=== PATIENT | female | born 1980 | race Caucasian/White ===

== ENCOUNTER → 2017-12-09 07:50 | Outpatient (CLI) | payer OTHER, SELFPAY ==
--- NOTE | 2017-12-09 07:57 | XR_ITS ---
XR foot LT min 3V HISTORY: ITS.REASON: PLANTAR FACIITITS, LT FOOT PAIN ORDERING PHYSICIAN: Madelyn Rodríguez PATIENT AGE: 37 years COMPARISON: None FINDINGS: No fracture or dislocation. No lytic or blastic change. There is normal mineralization.. The joint spaces are well-preserved. No significant degenerative/arthritic changes. No erosive changes evident. No large calcaneal spurs IMPRESSION: Negative, no acute finding
== END ==
PROVIDERS: PCP Internal Medicine Adolescent Medicine; Visit Provider Nurse Practitioner Family
DX: M72.2 Plantar fascial fibromatosis (principal); M79.672 Pain in left foot
CPT/HCPCS: 73630

== ENCOUNTER → 2017-12-16 08:13 | Outpatient (POV) | payer OTHER, SELFPAY | PROVIDERS: Visit Provider Physician Assistant | DX: Z00.00 Encounter for general adult medical examination without abnormal findings (principal) ==

== ENCOUNTER → 2019-01-22 07:53 | Outpatient (CLI) | payer OTHER, SELFPAY ==
--- NOTE | 2019-01-22 07:57 | XR_ITS ---
PROCEDURE: XR FOOT LT MIN 3V CLINICAL INDICATION: ACUTE PAIN DUE TO TRAUMA COMPARISON: [id number] XR foot LT min 3V from 12/09/2017 FINDINGS: No fracture or dislocation. No lytic or blastic change. There is normal mineralization. The joint spaces are well-preserved. No significant degenerative/arthritic changes. No erosive changes evident. Other findings:None. IMPRESSION: No acute findings. Dictated by: Pavan Haque MD 01/22/2019 13:18 Electronically signed by Pavan Haque MD in [place] 01/22/2019 13:18
== END ==
PROVIDERS: PCP Nurse Practitioner Family; Visit Provider Nurse Practitioner Family
DX: G89.11 Acute pain due to trauma (principal); M79.672 Pain in left foot
CPT/HCPCS: 73630

== ENCOUNTER → 2019-04-02 10:05 | Outpatient (CLI) | payer OTHER, SELFPAY ==
--- NOTE | 2019-04-02 10:07 | MR_ITS ---
PROCEDURE: MR HEAD/BRAIN WO/W CON CLINICAL INDICATION: MIGRAINE WITH AURA AND WOUT STATUS MIGRAINOSUS, NOT INTRACTA Severe left-sided temporal headache with blurred vision COMPARISON: BRW/O MRI-BRAIN W/O from 03/01/2014 TECHNIQUE: Routine multiplanar multi echo sequences are performed without and with gadolinium enhancement. FINDINGS: No midline shift, mass effect, intracranial hemorrhage, or hydrocephalus. No evidence of acute infarction. No enhancing lesions are evident. The cerebellopontine angles, cerebellum, and brainstem are unremarkable. There is normal sosa-white matter differentiation with no abnormal white matter signal intensity evident. The pituitary, optic chiasm, corpus callosum, and craniocervical junction have an unremarkable appearance. No mastoid effusion or sinus air-fluid level. IMPRESSION: Negative MRI of the brain without and with contrast Dictated by: Pavan Haque MD 04/03/2019 07:52 Electronically signed by Pavan Haque MD in [facility] 04/03/2019 07:52
== END ==
PROVIDERS: PCP Nurse Practitioner Family; Visit Provider Nurse Practitioner Family
DX: G43.109 Migraine with aura, not intractable, without status migrainosus (principal)
CPT/HCPCS: 70553; A9576

== ENCOUNTER → 2019-05-06 12:49 | Outpatient (CLI) | payer OTHER, SELFPAY ==
--- NOTE | 2019-05-06 12:55 | XR_ITS ---
PROCEDURE: XR WRIST RT MIN 3V CLINICAL INDICATION: RT WRIST PAIN Wrist pain, recent injury COMPARISON: No exams were available for comparison FINDINGS: Unremarkable appearing radiocarpal joint. There is a small calcific density along the dorsal aspect of the mid wrist on the lateral view and could be due to a triquetrum avulsion. Otherwise negative IMPRESSION: Possible triquetrum avulsion fracture which may be confirmed with CT otherwise negative Dictated by: Pavan Haque MD 05/06/2019 13:24 Electronically signed by Pavan Haque MD in [facility] 05/06/2019 13:24
== END ==
PROVIDERS: PCP Internal Medicine Adolescent Medicine; Visit Provider Internal Medicine Adolescent Medicine
DX: M25.531 Pain in right wrist (principal)
CPT/HCPCS: 73110

== ENCOUNTER → 2019-06-05 08:53 | Outpatient (CLI) | payer OTHER, SELFPAY ==
--- NOTE | 2019-06-05 08:58 | XR_ITS ---
PROCEDURE: XR WRIST RT MIN 3V CLINICAL INDICATION: wrist pain Follow-up wrist fracture COMPARISON: XR WRIST RT MIN 3V from 05/06/2019 FINDINGS: Normal alignment. Small bony fragment noted at the dorsal and mid aspect of wrist consistent with triquetrum avulsion is somewhat less apparent. No other significant abnormalities evident. IMPRESSION: Triquetrum avulsion fragment is somewhat less apparent otherwise negative Dictated by: Pavan Haque MD 06/05/2019 10:47 Electronically signed by Pavan Haque MD in [place] 06/05/2019 10:47
== END ==
PROVIDERS: PCP Internal Medicine Adolescent Medicine; Visit Provider Orthopaedic Surgery
DX: S62.101A Fracture of unspecified carpal bone, right wrist, initial encounter for closed fracture (principal)
CPT/HCPCS: 73110

== ENCOUNTER → 2019-11-27 12:45 | Outpatient (CLI) | payer OTHER, SELFPAY ==
--- NOTE | 2019-11-27 12:58 | XR_ITS ---
PROCEDURE: XR CHEST 2V CLINICAL HISTORY: CHEST WALL PAIN,CHEST WALL MASS Mass noted posterior to the left scapula 2 days ago. COMPARISON: CXR CHEST(2 VIEWS-NOT PORTABLE) from 05/07/2013 FINDINGS: No acute bony abnormalities. The cardiomediastinal silhouette and pulmonary vascularity are within normal limits. The lungs are clear without infiltrates, suspicious nodules, or pleural effusions. IMPRESSION: 1. No acute or active cardiopulmonary abnormality is seen. 2. If there is clinical concern for a mass, I recommend CT exam. Dictated by: Quiana Lawson 11/27/2019 13:40 Electronically signed by Quiana Lawson in [place] 11/27/2019 13:40
--- NOTE | 2019-11-27 12:58 | CT_ITS ---
PROCEDURE: CT CHEST W CON CLINCAL INDICATION: CHEST WALL MASS,CHEST PAIN COMPARISON: No exams were available for comparison TECHNIQUE: IV Contrast: 75ml Optiray 350 Axial images obtained with sagittal and coronal reformats. All CT scans at the facility use one or more dose reduction, viz: automated exposure control, ma/kV adjustment per patient size (including targeted exams where dose is matched to indication, i.e. head), or iterative reconstruction technique. FINDINGS: HEART AND MEDIASTINAL STRUCTURES: The heart size is normal and there is no pericardial effusion. The aorta and great vessels are normal in caliber. The central pulmonary arteries are patent. There is no demonstrated significant mediastinal or hilar lymphadenopathy. Reactive lymph nodes are seen in the axilla bilaterally. LUNGS AND PLEURAL SPACES: The lungs are clear with no infiltrates, effusions or masses. There is biapical mild pleural parenchymal scarring. BONY STRUCTURES: No acute bony abnormalities apparent. UPPER ABDOMEN: Unremarkable. ADDITIONAL FINDINGS: No other significant abnormalities. No discrete abnormality/mass is identified at the area of clinical concern/left scapular region. IMPRESSION: Essentially an unremarkable CT exam of the chest. No mass or other abnormalities identified at the area of reported clinical concern. Dictated by: Quiana Lawson 11/27/2019 13:58 Electronically signed by Quiana Lawson in [place] 11/27/2019 13:58
== END ==
PROVIDERS: PCP Internal Medicine Adolescent Medicine; Visit Provider Internal Medicine Adolescent Medicine
DX: R07.9 Chest pain, unspecified (principal); R22.2 Localized swelling, mass and lump, trunk
CPT/HCPCS: 71046; 71260; Q9967

== ENCOUNTER → 2020-02-04 13:30 | Outpatient (CLI) | payer OTHER, SELFPAY | PROVIDERS: PCP Internal Medicine Adolescent Medicine; Visit Provider Internal Medicine Adolescent Medicine | DX: Z03.818 Encounter for observation for suspected exposure to other biological agents ruled out (principal); R05 Cough | CPT/HCPCS: U0003 ==

== ENCOUNTER → 2020-02-09 10:21 | Outpatient (CLI) | payer OTHER, SELFPAY ==
[2020-02-10 07:34] LABS: Covid-19 Nasal PCR Sendout Lex NOT DETECTED
== END ==
PROVIDERS: Visit Provider Internal Medicine Adolescent Medicine
DX: Z03.818 Encounter for observation for suspected exposure to other biological agents ruled out (principal)
CPT/HCPCS: U0004

== ENCOUNTER → 2020-07-19 13:12 | Outpatient (POV) | payer OTHER, SELFPAY | PROVIDERS: Visit Provider Dermatology | DX: Z00.00 Encounter for general adult medical examination without abnormal findings (principal) ==

== ENCOUNTER → 2021-10-10 08:33 | Outpatient (POV) | payer OTHER, SELFPAY | PROVIDERS: Visit Provider Dermatology | DX: Z00.00 Encounter for general adult medical examination without abnormal findings (principal) ==

== ENCOUNTER 2022-02-12 06:04 | Day surgery (SDC) | payer OTHER, SELFPAY ==
[2022-02-12] VITALS (9 sets, daily range): BP systolic 116–123; BP diastolic 71–85; PULSE 68–80; RESP 12–18; TEMP 36.1–36.2; O2SAT 96–100; BMI 31.0
[2022-02-12 06:26] LABS: Urine Pregnancy, HCG Qual. Negative (Negative)
[2022-02-12 07:04] LABS: Basophils # 0.1 K/mm3 (0-0.2); Basophils % 1.4 % (0.1-2.0); Eosinophils # 0.1 K/mm3 (0.0-0.4); Eosinophils % 2.2 % (0.1-12.0); Hematocrit 41.5 % (37.0-47.0); Hemoglobin 13.3 g/dL (12.2-16.2); Lymphocytes # 1.7 K/mm3 (0.7-4.5); Lymphocytes % 25.9 % (10-50); Mean Corpuscular HGB Conc 32.1 g/dL (31.8-35.4); Mean Corpuscular Hemoglobin 30.7 pg (27.0-31.2); Mean Corpuscular Volume 95.7 fl (81-99); Monocytes # 0.4 K/mm3 (0.1-1.0); Monocytes % 5.9 % (1.7-9.3); Neutrophils # 4.3 K/mm3 (1.8-7.8); Neutrophils % 64.6 % (37.0-80.0); Platelet Count 345 K/mm3 (142-424); Red Blood Count 4.34 M/mm3 (4.20-5.40); Red Cell Distribution Width 13.3 % (11.5-17.5); White Blood Count 6.7 K/mm3 (4.8-10.8)
--- NOTE | 2022-02-12 07:14 | SUR.PREOP ---
0702 - H&P LAID OUT FOR MD TO FILL OUT AND SIGN CONSENT DUE TO OVER 30 DAYS. Sherry NEWTON RN NOTIFIED MD HAS NOT FILLED OUT UPDATED H&P OR SIGNED CONSENT. Sherry NEWTON RN STATED WILL REMIND .
[2022-02-12 07:16] LABS: Chloride 105 mmol/L (98-107); Potassium 3.4 mmoL/L (3.5-5.1); Sodium 141 mmol/L (136-145)
[2022-02-12 07:19] LABS: Anion Gap 11.4 mEq/L (5-15); Blood Urea Nitrogen 9 mg/dl (7-17); Carbon Dioxide 28 mmol/L (22.0-30.0); Creatinine Clearance Estimated 162 mL/min (50-200); Estimated Glomerular Filt Rate 93 ml/min (>60); GFR (African American) 113 ML/MIN (>60); Glucose 93 mg/dl (74-100)
--- NOTE | 2022-02-12 07:32 | P.PN_ITS ---
PFSH PFS Medical History Acne History of anxiety History of depression History of gastroesophageal reflux (GERD) Lipoma of shoulder Migraine Surgical History History of breast lump/mass excision History of dilatation and curettage History of wisdom tooth extraction, class IV edentulism Hx of section Hx of tubal ligation Family History Other Family history of hypertension Social History (Updated 02/12/22 @ 06:26 by Fatimah Rodríguez RN) Smoking Status: Former smoker smoking status stop date: QUIT 10 YEARS AGO alcohol intake: never substance use type: denies use current occupational status: employed Travel in the last 8 weeks: Inside the [place] household members: family housing: house marital status: education level: high school special jesse needs: No agree to transfusion: No do you feel safe at home: Yes victim of physical abuse: No victim of emotional abuse: No victim of sexual abuse: No would you like helpful sources: No [facility] Anesthesia Checklist Patient Identification Patient Identification: Verbal (Name & ) Structural Data Admitted From: Home Planned Operative Procedure/s: excision neoplasm l shoulder Verified Documents: Surgical Consent NPO Status Verified Time NPO: 00:00 Additional verifications Anesthesia Reactions: No Hx Blood Transfusions: No Blood Transfusion Reaction: No Airway Assessment C-Spine Mobility Assessed: Yes TMJ Mobility Assessed: Yes Dentition: Good Dentition Neurological Assessment Level of Consciousness: Awake, Alert and Appropriate Anesthesia Plan Anesthesia Risk discussed: Yes Anesthesia Plan: Verified ASA Class: II Anesthesia Type: General
--- NOTE | 2022-02-12 07:59 | P.OP_ITS ---
Date of procedure: 02/12/22 Pre-op Diagnosis:: Lipoma left upper back/scapular Post-op Diagnosis:: Same Procedure performed:: Excision of lipoma left upper back/scapular area (excisional length 5 cm) with complex closure Surgeon:: Marco Sosa MD ESTIMATOR AND DRAFTER SUPERVISOR:: Lukas Ramos Anesthesia: LMA Estimated blood loss (mL): 5 Operative findings:: Consistent with lipoma. Relatively deep Operative note:: Patient was taken to the operating room. She was given preoperative intravenous antibiotics. In the operating room she was placed in a supine position. General anesthesia was induced via endotracheal tube. She was positioned in right lateral position. The area was prepped and draped in the standard surgical fashion. Lesion was marked with skin marker for planned excision. Please note that the lesion had been marked in the preoperative area. Transverse skin incision was made. Dissection was carried down through subcutaneous tissues and superficial fascia. Fascia was incised and ultimately lobulated lipomatous lesion was encountered. With some blunt dissection and use of electrocautery it was able to be dissected free from surrounding tissues. It was relatively deep. It was excised and sent off as specimen. Wound was probed and appeared as though the lesion was excised in its entirety but it was somewhat lobulated and friable. Local anesthetic was infiltrated. Wound was irrigated. There was good hemostasis. Fascia was closed with interrupted 2-0 Vicryl. Deep dermal tissues were closed with interrupted 3-0 Vicryl. Skin was closed with 4-0 Monocryl in a running subcuticular fashion. Dermabond and dressing was applied. Condition: stable Disposition: PACU Complications:: None immediate
--- NOTE | 2022-02-12 08:05 | EXP.ANES.I ---
[facility] Anesthesia Record Part I Anesthesia Record I Intake, IV Amount: 1,200 Estimated blood loss (mL): 0 Urine output (mL): 0 Blood Pressure: 122/82 SaO2: 96 Pulse Rate: 80 Respiratory Rate: 12 Temperature: 97 F Patient is:: Awake and Stable Stable to PACU at:: 08:00
--- NOTE | 2022-02-12 08:32 | SUR.PHASEI ---
829- detailed report given to stefanie patricio in post op 0831- pt left in stable condition with stefanie patricio in post op at this time. All vitals stable, all dressings CDI.
[2022-02-13 10:41] VITALS: BP 116/79; PULSE 70; TEMP 36.2
--- NOTE | 2022-02-13 10:41 | P.PNANES_ITS ---
[facility] Anesthesia Record Part II Anesthesia Record Part II Discharge Time: 08:30 Destination: Surgical Day Care (OP Surgery) PACU nurse assessment reviewed?: Yes Patient Condition:: Good Anesthesia Complications:: None Swallowing reflex intact?: Yes Cyanosis?: No Blood Pressure: 116/79 Pulse Rate: 70 Temperature: 97.2 F Mental Status: Alert & Oriented Pain level:: 0 Nausea and/or vomitting:: None Intake, IV Amount: 0
== END 2022-02-12 09:05 | disposition home or self-care (01) ==
PROVIDERS: PCP Internal Medicine Adolescent Medicine; Visit Provider Surgery
PROC: (CPT 11406; principal; 2022-02-12 07:30)
DX: D17.1 Benign lipomatous neoplasm of skin and subcutaneous tissue of trunk (principal); Z79.899 Other long term (current) drug therapy
CPT/HCPCS: 11406; 13101; 80048; 81025; 85025; 96374; J2405

== ENCOUNTER → 2023-01-28 11:51 | Outpatient (CLI) | payer OTHER, SELFPAY ==
--- NOTE | 2023-01-28 11:55 | CA_ITS ---
FINAL REPORT CLINICAL HISTORY: recent travel, SOB, right knee pain. FINDINGS: Color Doppler, duplex Doppler and compression sonography of the bilateral lower extremities was performed. There is no evidence of deep venous thrombosis from the level of the groin to the calf. The deep veins are patent and compressible. IMPRESSION: No evidence of deep venous thrombosis bilateral lower extremities. Reviewed, Interpreted and Dictated by Marco Henson III, MD Transcribed by Eloina Mueller Authenticated and [facility]
== END ==
PROVIDERS: PCP Internal Medicine Adolescent Medicine; Visit Provider Nurse Practitioner Family
DX: R60.0 Localized edema (principal)
CPT/HCPCS: 93970

== ENCOUNTER → 2023-02-08 17:58 | Outpatient (CLI) | payer OTHER, SELFPAY ==
--- NOTE | 2023-02-08 18:16 | XR_ITS ---
PROCEDURE INFORMATION: Exam: XR Chest Exam date and time: 02/08/2023 6:17 PM Age: 42 years old Clinical indication: Pain; Shortness of breath; Right-sided; Patient HX: Previous breast surgery, tissue removed and clip placed; Additional info: RT rib pain , SOA TECHNIQUE: Imaging protocol: Radiologic exam of the chest. Views: 2 views. COMPARISON: CT CHEST W CON 11/27/2019 1:18 PM FINDINGS: Lungs: Normal. Pleural spaces: Normal No pleural effusion. No pneumothorax. Heart/Mediastinum: Normal. No cardiomegaly. Bones/joints: Unremarkable. IMPRESSION: No acute findings.
[2023-02-08 18:33] LABS: Alanine Aminotransferase 38 U/L (12-78); Albumin Level 4.3 g/dl (3.5-5.0); Albumin/Globulin Ratio 1.4 (1.1-1.8); Alkaline Phosphatase 94 U/L (38-126); Anion Gap 12.8 mEq/L (5-15); Aspartate Amino Transferase 42 U/L (14-36); Bilirubin,Total 0.2 mg/dl (0.2-1.3); Blood Urea Nitrogen 13 mg/dl (7-17); Calcium 9.3 mg/dl (8.4-10.2); Carbon Dioxide 24 mmol/L (22.0-30.0); Chloride 106 mmol/L (98-107); Estimated Glomerular Filt Rate 79 ml/min (>60); GFR (African American) 96 ML/MIN (>60); Globulin 3.1 g/dL (1.3-3.2); Glucose 134 mg/dl (74-100); Potassium 3.8 mmoL/L (3.5-5.1); Sodium 139 mmol/L (136-145); Total Protein,Serum 7.4 g/dl (6.3-8.2)
[2023-02-08 18:40] LABS: D-Dimer 1.04 ug/mL (0.0-0.5)
[2023-02-08 18:42] LABS: Basophils % 0.3 % (0.1-2.0); Eosinophils # 0.2 K/mm3 (0.0-0.4); Eosinophils % 1.9 % (0.1-12.0); Hematocrit 39.9 % (37.0-47.0); Hemoglobin 13.8 g/dL (12.2-16.2); Lymphocytes # 1.8 K/mm3 (0.7-4.5); Lymphocytes % 15.6 % (10-50); Mean Corpuscular HGB Conc 34.5 g/dL (31.8-35.4); Mean Corpuscular Hemoglobin 32.4 pg (27.0-31.2); Mean Corpuscular Volume 93.7 fl (81-99); Mean Platelet Volume 8.3 fl (7.4-10.4); Monocytes # 0.5 K/mm3 (0.1-1.0); Monocytes % 4.3 % (1.7-9.3); Neutrophils # 9.1 K/mm3 (1.8-7.8); Neutrophils % 77.9 % (37.0-80.0); Platelet Count 329 K/mm3 (142-424); Red Blood Count 4.25 M/mm3 (4.20-5.40); Red Cell Distribution Width 12.6 % (11.5-17.5); White Blood Count 11.7 K/mm3 (4.8-10.8)
[2023-02-09 10:54] LABS: Hemoglobin A1C 5.1 % (4.0-6.0)
== END ==
PROVIDERS: PCP Internal Medicine Adolescent Medicine; Visit Provider Nurse Practitioner Family
DX: R07.81 Pleurodynia (principal); R06.02 Shortness of breath
CPT/HCPCS: 36415; 71046; 80053; 83036; 85025; 85378

== ENCOUNTER → 2023-02-09 09:46 | Outpatient (CLI) | payer OTHER, SELFPAY ==
--- NOTE | 2023-02-09 09:50 | CT_ITS ---
PROCEDURE INFORMATION: Exam: CTA Chest With Contrast Exam date and time: 02/09/2023 9:59 AM Age: 42 years old Clinical indication: Abnormal findings; Abnormal diagnostic tests; Elevated d-dimer; Shortness of breath; Additional info: SOA, leg edema, elevated d-dimer TECHNIQUE: Imaging protocol: Computed tomographic angiography of the chest with contrast. Exam focused on the arteries. 3D rendering (Not supervised by radiologist): MIP and/or 3D reconstructed images were created by the technologist. Radiation optimization: All CT scans at this facility use at least one of these dose optimization techniques: automated exposure control; mA and/or kV adjustment per patient size (includes targeted exams where dose is matched to clinical indication); or iterative reconstruction. Contrast material: ISO 370; Contrast volume: 70 ml; Contrast route: INTRAVENOUS (IV); REPORTING DATA: Count of CT and Cardiac NM exams in prior 12 months: This patient has received 0 known CTs and 0 known cardiac nuclear medicine studies in the 12 months prior to the current study. COMPARISON: CT CHEST W CON 11/27/2019 1:18 PM FINDINGS: Tubes, catheters and devices: This could be either a repeat scan with additional contrast or a ventilation-perfusion scan. Pulmonary arteries: There is suboptimal opacification of the pulmonary arteries limiting the sensitivity of this examination. No gross central filling defects are identified. If there is a high clinical suspicion of pulmonary emboli, further evaluation is suggested. Aorta: Unremarkable. No aortic aneurysm. No aortic dissection. Lungs: Unremarkable. No consolidation. No masses. Pleural spaces: Unremarkable. No pneumothorax. No pleural effusion. Heart: Unremarkable. No cardiomegaly. No pericardial effusion. Lymph nodes: Unremarkable. No enlarged lymph nodes. Bones/joints: Unremarkable. No acute fracture. Soft tissues: Unremarkable. IMPRESSION: There is suboptimal opacification of the pulmonary arteries limiting the sensitivity of this examination. No gross central filling defects are identified. If there is a high clinical suspicion of pulmonary emboli, further evaluation is suggested. This could be either a repeat scan with additional contrast or a ventilation-perfusion scan.
--- NOTE | 2023-02-09 11:42 | CT_ITS ---
PROCEDURE INFORMATION: Exam: CTA Chest With Contrast Exam date and time: 02/09/2023 11:49 AM Age: 42 years old Clinical indication: Shortness of breath; Additional info: SOA, elevated d dimer TECHNIQUE: Imaging protocol: Computed tomographic angiography of the chest with contrast. Exam focused on the arteries. 3D rendering (Not supervised by radiologist): MIP and/or 3D reconstructed images were created by the technologist. Radiation optimization: All CT scans at this facility use at least one of these dose optimization techniques: automated exposure control; mA and/or kV adjustment per patient size (includes targeted exams where dose is matched to clinical indication); or iterative reconstruction. Contrast material: ISOVUE; Contrast volume: 70 ml; Contrast route: INTRAVENOUS (IV); REPORTING DATA: Count of CT and Cardiac NM exams in prior 12 months: This patient has received 0 known CTs and 0 known cardiac nuclear medicine studies in the 12 months prior to the current study. COMPARISON: CT ANGIO CHEST PE PROTOCOL 02/09/2023 9:59 AM FINDINGS: Pulmonary arteries: Normal. No pulmonary emboli. Aorta: Unremarkable. No aortic aneurysm. No aortic dissection. Lungs: Unremarkable. No consolidation. No masses. Pleural spaces: Unremarkable. No pneumothorax. No pleural effusion. Heart: Unremarkable. No cardiomegaly. No pericardial effusion. Lymph nodes: Unremarkable. No enlarged lymph nodes. Bones/joints: Unremarkable. No acute fracture. Soft tissues: Unremarkable. IMPRESSION: No acute findings.
== END ==
PROVIDERS: PCP Internal Medicine Adolescent Medicine; Visit Provider Nurse Practitioner Family
DX: R06.02 Shortness of breath (principal); R60.0 Localized edema; R79.89 Other specified abnormal findings of blood chemistry
CPT/HCPCS: 71275; Q9967

== ENCOUNTER → 2023-03-05 07:51 | Outpatient (CLI) | payer OTHER, SELFPAY ==
[2023-03-05 08:04] LABS: Basophils # 0.1 K/mm3 (0-0.2); Basophils % 0.8 % (0.1-2.0); Eosinophils # 0.2 K/mm3 (0.0-0.4); Eosinophils % 3.1 % (0.1-12.0); Hematocrit 42.8 % (37.0-47.0); Hemoglobin 14.5 g/dL (12.2-16.2); Lymphocytes # 1.7 K/mm3 (0.7-4.5); Lymphocytes % 22.8 % (10-50); Mean Corpuscular Volume 94.3 fl (81-99); Monocytes # 0.5 K/mm3 (0.1-1.0); Monocytes % 6.3 % (1.7-9.3); Neutrophils # 4.8 K/mm3 (1.8-7.8); Neutrophils % 67.1 % (37.0-80.0); Platelet Count 319 K/mm3 (142-424); Red Blood Count 4.54 M/mm3 (4.20-5.40); Red Cell Distribution Width 12.7 % (11.5-17.5); White Blood Count 7.2 K/mm3 (4.8-10.8)
[2023-03-05 09:11] LABS: Alanine Aminotransferase 24 U/L (12-78); Albumin Level 4.4 g/dl (3.5-5.0); Albumin/Globulin Ratio 1.8 (1.1-1.8); Alkaline Phosphatase 86 U/L (38-126); Anion Gap 13.3 mEq/L (5-15); Aspartate Amino Transferase 32 U/L (14-36); Bilirubin,Direct 0.1 mg/dl (0.0-0.4); Bilirubin,Indirect 0.3 mg/dL (0.0-0.9); Bilirubin,Total 0.4 mg/dl (0.2-1.3); Bilirubin,Unconjugated 0.3 mg/dL (0.0-1.1); Blood Urea Nitrogen 11 mg/dl (7-17); Calcium 9.6 mg/dl (8.4-10.2); Carbon Dioxide 25 mmol/L (22.0-30.0); Chloride 105 mmol/L (98-107); Chol/HDL Ratio 3.4 (1-3.5); Cholesterol 187 mg/dl (140-200); Estimated Glomerular Filt Rate 69 ml/min (>60); GFR (African American) 84 ML/MIN (>60); Globulin 2.5 g/dL (1.3-3.2); Glucose 97 mg/dl (74-100); HDL Cholesterol 55 mg/dl (40-60); Potassium 4.3 mmoL/L (3.5-5.1); Sodium 139 mmol/L (136-145); Total Protein,Serum 6.9 g/dl (6.3-8.2); Triglycerides 114 mg/dl (30-150); VLDL Cholesterol 23 mg/dL (0-40)
[2023-03-05 09:20] LABS: NT Pro Brain Natriuretic Pep. 52.9 pg/mL (0-125)
[2023-03-05 09:24] LABS: Direct LDL Cholesterol 99.23 mg/dL (100-129)
[2023-03-05 09:28] LABS: Free T4 (Free Thyroxine) 0.82 ng/dl (0.78-2.19)
== END ==
PROVIDERS: PCP Internal Medicine Adolescent Medicine; Visit Provider Internal Medicine
DX: R06.00 Dyspnea, unspecified (principal); R60.0 Localized edema
CPT/HCPCS: 36415; 80053; 80061; 80076; 83880; 84439; 84443; 85025

== ENCOUNTER → 2023-03-06 15:05 | Outpatient (CLI) | payer OTHER, SELFPAY ==
--- NOTE | 2023-03-06 15:07 | CA_ITS ---
APPROVED REPORT EXAM: Comprehensive 2D, Doppler, and color-flow Echocardiogram Colorectal Surgeon: Alyson Parks, RT(R) Ht: 5 ft 9 in Wt: 203lbs BSA: 2.08 BP: 123/84 mmHg Indications: edema, MYERS, cough, right sided chest pain 2D Dimensions LVOT 1.98 cm (M/F) 1.5-2.5 M-Mode Dimensions RVDd 2.17 cm (0.9-2.6) LA Diam 3.11 cm (1.9-4.0) LVDd 4.98 cm (3.5-5.7) Ao Diam 3.07 cm (2.0-3.7) LVDs 3.78 cm (3.5-5.7) IVSd 1.00 cm (0.6-1.1) PWd 0.80 cm (0.6-1.1) EF (Teich) 47.70% FS 24.10% EDV (Teich) 117.10 mL ESV (Teich) 61.20 mL LV Diastology E Decel Time 237.00 (160-240 msec) E/A Ratio 1.1 MED E' 16.30 (< 7 cm/sec) E'/MED E' Ratio 4.29 (>14) LAT E' 18.70 (<10 cm/sec) E/LAT E' Ratio 3.74 (>14) Mitral Valve MV E Max Jeanmarie. 70.00 (40-130 cm/s) MV A Velocity 65.00 (40-130 cm/s) E/A Ratio 1.07 MV Decel. Time 237.00 (160-240 ms) MV PHT 69.00 ms Left Ventricle The left ventricle is normal size. The left ventricular systolic function is normal. The left ventricular ejection fraction is within the normal range. There is normal left ventricular wall thickness. There is normal LV segmental wall motion. The left ventricular diastolic function is normal. LVEF is 60%. Normal biventricular systolic function. Right Ventricle The right ventricle is normal size. The right ventricular systolic function is normal. Atria The left atrium size is normal. The right atrium size is normal. There is no Doppler evidence of interatrial shunt. Aortic Valve The aortic valve is normal in structure. There is no aortic valvular stenosis. No aortic regurgitation is present. Mitral Valve The mitral valve is normal in structure. No evidence of mitral valve stenosis. There is no mitral valve regurgitation noted. Tricuspid Valve The tricuspid valve leaflets are thin and pliable. Trace tricuspid regurgitation. There is insufficient TR jet to estimate RVSP. Pulmonic Valve The pulmonary valve is normal in structure. Please pulmonic regurgitation. Great Vessels The aortic root is normal in size. The ascending aorta is normal in size. IVC is normal in size and collapses >50% with inspiration. Pericardium There is no pericardial effusion. Other Information Study Quality: Adequate Conclusion Normal biventricular systolic function. No significant valvular stenosis or regurgitation. Electronically signed by : Jennifer Bellamy MD 03/11/2023 10:20:32
== END ==
PROVIDERS: PCP Internal Medicine Adolescent Medicine; Visit Provider Internal Medicine
DX: R06.00 Dyspnea, unspecified (principal); R60.0 Localized edema
CPT/HCPCS: 93306

== ENCOUNTER → 2023-03-16 09:26 | Outpatient (CLI) | payer OTHER, SELFPAY ==
--- NOTE | 2023-03-16 09:30 | XR_ITS ---
PROCEDURE INFORMATION: Exam: XR Right Foot Exam date and time: 03/16/2023 9:31 AM Age: 42 years old Clinical indication: Pain; Foot; Right; Additional info: Right foot pain. Dropped dresser on foot. Pain around 3-5th metatarsals TECHNIQUE: Imaging protocol: Radiologic exam of the right foot. Views: 3 or more views. COMPARISON: CA VENOUS DOPPLER LE BI 01/28/2023 12:00 PM FINDINGS: Bones/joints: Plantar calcaneal enthesopathy is noted. There is no evidence for acute fracture or dislocation. Overall bony mineralization is within normal limits. Soft tissues: Normal. IMPRESSION: Calcaneal enthesopathy, right foot. No evidence for acute fracture
== END ==
PROVIDERS: PCP Internal Medicine Adolescent Medicine; Visit Provider Internal Medicine Adolescent Medicine
DX: M79.671 Pain in right foot (principal)
CPT/HCPCS: 73630

== ENCOUNTER → 2023-04-15 07:27 | Outpatient (CLI) | payer OTHER, SELFPAY ==
[2023-04-15 14:02] LABS: Total Protein,Urine Random < 5.0 mg/dL (0.0-12.0)
[2023-04-15 14:18] LABS: Total Protein 24 Hour,Urine 56 mg/24 hr (40-90); Total Volume,Urine 1125 mL (600-1600)
== END ==
PROVIDERS: PCP Internal Medicine Adolescent Medicine; Visit Provider Internal Medicine
DX: R06.00 Dyspnea, unspecified (principal); R60.0 Localized edema
CPT/HCPCS: 84155

== ENCOUNTER 2023-08-15 08:12 | Outpatient (CLI) | payer OTHER, SELFPAY ==
[2023-08-15 08:47] LABS: Chloride 105 mmol/L (98-107); Potassium 4.1 mmoL/L (3.5-5.1); Sodium 140 mmol/L (136-145)
[2023-08-15 08:50] LABS: Anion Gap 10.1 mEq/L (5-15); Blood Urea Nitrogen 8 mg/dl (7-17); Carbon Dioxide 29 mmol/L (22.0-30.0); Estimated Glomerular Filt Rate 79 ml/min (>60); GFR (African American) 96 ML/MIN (>60); Glucose 99 mg/dl (74-100)
[2023-08-15 08:51] LABS: Calcium 9.3 mg/dl (8.4-10.2)
== END 2023-08-15 23:59 ==
LOC: LAB 08:12
PROVIDERS: PCP Internal Medicine Adolescent Medicine; Visit Provider Physician Assistant
DX: R60.0 Localized edema (principal); R06.00 Dyspnea, unspecified
CPT/HCPCS: 36415; 80048

== ENCOUNTER 2023-11-28 07:36 | Outpatient (CLI) | payer OTHER, SELFPAY ==
--- NOTE | 2023-11-28 07:41 | XR_ITS ---
FINAL REPORT CLINICAL HISTORY: Right foot pain COMPARISON: 03/16/2023 FINDINGS: RIGHT FOOT 3 views of the right foot were obtained. There is no acute fracture or dislocation. The joint spaces are preserved. There is a small plantar spur. Accessory navicular is noted. The soft tissues are unremarkable. IMPRESSION: No acute bony abnormality. Small plantar spur. Reviewed, Interpreted and Dictated by Carl Griffin MD Transcribed by Melyssa Jay Authenticated and [facility]
--- NOTE | 2023-11-28 07:41 | XR_ITS ---
FINAL REPORT CLINICAL HISTORY: Left foot pain COMPARISON: 01/22/2019 FINDINGS: LEFT FOOT Three views of the left foot demonstrate no acute fracture or dislocation. The joint spaces are preserved. There is a small plantar spur. Accessory navicular is noted. The soft tissues are unremarkable. IMPRESSION: No acute bony abnormality. Small plantar spur. Reviewed, Interpreted and Dictated by Carl Griffin MD Transcribed by Melyssa Jay Authenticated and [facility]
== END 2023-11-28 23:59 | disposition home or self-care (01) ==
LOC: RAD 07:36
PROVIDERS: PCP Internal Medicine Adolescent Medicine; Visit Provider Nurse Practitioner
DX: M79.671 Pain in right foot (principal); M79.672 Pain in left foot
CPT/HCPCS: 73630

== ENCOUNTER 2024-05-06 11:24 | Outpatient (CLI) | payer OTHER, SELFPAY ==
--- NOTE | 2024-05-06 11:28 | XR_ITS ---
FINAL REPORT CLINICAL HISTORY: INJURY OF RIGHT HAND COMPARISON: None FINDINGS: RIGHT HAND Three views demonstrate no acute fracture or dislocation. The visualized joint spaces are normally aligned. The soft tissues are unremarkable. IMPRESSION: No acute bony abnormality. Reviewed, Interpreted and Dictated by Carl Griffin MD Transcribed by Chetna Guillen Authenticated and [facility]
== END 2024-05-06 23:59 | disposition home or self-care (01) ==
LOC: RAD 11:25
PROVIDERS: PCP Internal Medicine Adolescent Medicine; Visit Provider Internal Medicine Adolescent Medicine
DX: S69.91XA Unspecified injury of right wrist, hand and finger(s), initial encounter (principal)
CPT/HCPCS: 73130

== ENCOUNTER 2025-04-08 07:55 | Outpatient (CLI) | payer OTHER, SELFPAY ==
--- OUTSIDE RECORDS SUMMARY | 2025-04-08 08:00 | XMS_ITS | Encounter Summary ---
Author Organization Healthcare Address [address] [place] [address] Care Team Providers Care Skirt Trimmer Name Role Phone Hawk Mcguire MD Primary Care Provider [phone] Reason for Referral * Consultation (Routine) - Closed Specialty Diagnoses / Procedures Referred By Contac t Referred To Contact Orthopaedic Surgery Diagnoses Right tennis elbow Hawk Mcguire MD [address] [place] [address] Phone: tel: fax: Yeyo Parker MD [address] [place] [address] Phone: tel: fax: Referral ID Status Reason Start Date Expiration Date V isits Requested Visits Authorized [id number] Closed Specialty Services Required 10/14/2024 04/15/2026 1 1 Encounter Details Date Type Department Care Team (Late st Contact Info) Description 10/14/2024 [facility] [address] [place] [address] Hawk Mcguire MD [address] [facility] [address] [facility] [address] [place] [address] Right tennis elbow (Primary Dx) Social History Tobacco Use Types Packs/Day Years Used Date Smoking Tobacco: Former Alcohol Use Standard Drinks/Week Comments No 0 (1 standard drink = 0.6 oz pur e alcohol) Comments Unknown Sex and Gender Information Value Date Recorded Sex Assigned at Not on file Legal Sex Female 6:27 PM EDT Gender Identity Not on file Sexual Orientation Not on file documented as of this encounter Plan of Treatment Scheduled Referrals Name Type Priority Associated Diagnoses Order Schedule Ambulatory referral to General Orthopaedics Outpatient Referral Routine Right tennis elbow Expected: 10/14/2024 (Approximate), Expires: 04/17/2026 documented as of this encounter Visit Diagnoses Diagnosis Right tennis elbow- Primary documented in this encounter Care Teams Skirt Trimmer Relationship Specialty Start Date End Date Hawk Mcguire MD [address] [place] [address] PCP - General 09/09/20 documented as of this encounter
--- OUTSIDE RECORDS SUMMARY | 2025-04-08 08:01 | XMS_ITS | Clinical Summary ---
Author Organization [facility] Address [address] [place] [address] Care Team Providers Care Cmm Technician Name Role Phone Hawk Mcguire MD Primary Care Provider [phone] Family History Medical History Relation Name Comments Breast cancer Cousin 1 2nd cousin Ovarian cancer Cousin 2 Breast cancer Other great aunt Relation Name Status Comments Cousin 1 Cousin 2 Other Social History Tobacco Use Types Packs/Day Years Used Date Smoking Tobacco: Never Assessed Comments No Sex and Gender Information Value Date Recorded Sex Assigned at Not on file Legal Sex Female 10:43 AM EDT Gender Identity Not on file Sexual Orientation Not on file Plan of Treatment Health Maintenance Due Date Last Done Comments ANNUAL PHYSICAL 1982 Annual Gynecologic Pelvic and Breast Exam 1982 HEPATITIS C SCREENING 1982 INFLUENZA VACCINE 11/27/2024 02/20/2023, , 02/15/2021, Additional history exists MAMMOGRAM 05/15/2026 05/15/2024, 03/30, 04/06/2022, Additional history exists TDAP/TD VACCINES (2 - Td or Tdap) 09/10/2029 09/11/2019 Pneumococcal Vaccine 0-49 Aged Out No longer eligible based on patient's age to complete this topic Procedures Procedure Name Priority Date/Time Associated Diagnosis Comments MAMMO SCREENING DIGITAL TOMOSYNTHESIS BILATERAL W CAD Routine 05/15/2024 9:22 AM EST Encounter for screening mammogram for malignant neoplasm of breast from Last 3 Months or Most Recently Relevant to Health Maintenance Results * Mammo Screening Digital Tomosynthesis Bilateral With CAD (05/15/2024 9:22 AM EST) Anatomical Region Laterality Modality Breast N/A Mammography 05/16/2024 3:22 PM EST Impressions 05/16/2024 3:22 PM EST Negative bilateral mammogram. RECOMMENDATION: Continue annual screening mammography. BI-RADS CATEGORY 1, NEGATIVE. CAD was utilized. The standard false-negative rate of mammography is between 10% and 25%. Complex patterns or increased breast density will markedly elevate the false-negative rate of mammography. A letter, in lay terminology, with the results of this exam will be mailed to the patient. This report was finalized on 05/16/2024 3:[address] Mora Vega MD. Narrative 05/16/2024 3:22 PM EST DIGITAL SCREENING MAMMOGRAM WITH TOMOSYNTHESIS HISTORY: Screening Mammography. Low dose full field digital breast tomosynthesis imaging was performed with 2D and 3D acquisitions consisting of bilateral CC and MLO views. Examination is compared to prior examination dating back to 11/14/2018. Examination is read in conjunction with computer aided detection. FINDINGS: The breast tissue is heterogeneously dense, which may obscure small masses. No suspicious masses, microcalcifications or areas of architectural distortion are present. Hawk Mcguire MD IMG MAMMOGRAPHY ORDERABLES F inal Result from Last 3 Months or Most Recently Relevant to Health Maintenance Insurance [place] [id number] [facility] Care Teams Cmm Technician Relationship Specialty Start Date End Date Hawk Mcguire MD [address] [facility] [address] [facility] [address] [facility] [place] [id number] PCP - General Adolescent Medicine 08/27/17
--- OUTSIDE RECORDS SUMMARY | 2025-04-08 08:01 | XMS_ITS | Clinical Summary ---
Author Organization Healthcare Address [address] [place] [address] Care Team Providers Care Lamps Tester And Inspector Name Role Phone Hawk Mcguire MD Primary Care Provider [phone] Allergies No known active allergies Medications buPROPion XL (Wellbutrin XL) 300 MG 24 hr tablet Take 1 tablet by mouth daily. 5 Active cholecalciferol (Vitamin D-3) 50 MCG (1999) tablet Take 1 tablet by mouth daily. 7 Active citalopram (CeleXA) 40 MG tablet Take 1 tablet by mouth daily. 5 Active clobetasol (Temovate) 0.05 % ointment Apply topically 2 times a day. 4 Active furosemide (Lasix) 20 MG tablet Take 1 tablet by mouth as needed. 5 Active Emgality 120 MG/ML injection Inject 1 Syringe under the skin every 30 days. 16th of every month 5 Active spironolactone (Aldactone) 100 MG tablet Take 1 tablet by mouth daily. 5 Active alpha tocopherol (Vitamin E) 400 units capsule Take 1 capsule by mouth daily. 7 Active famotidine (Pepcid) 20 MG tablet Take 1 tablet by mouth daily. Active aspirin 81 MG EC tablet Take 1 tablet by mouth daily. Active cetirizine (ZyrTEC) 10 MG tablet Take 1 tablet by mouth daily. Active Family History Medical History Relation Name Comments Emphysema Father Hypertension Father Cardiac disorder Maternal Grandfather Diabetes Maternal Grandfather Hypertension Mother Lung cancer Paternal Grandmother Relation Name Status Comments Father Maternal Grandfather Mother Paternal Grandmother Social History Tobacco Use Types Packs/Day Years Used Date Smoking Tobacco: Former Smokeless Tobacco: Never Tobacco Cessation:Counseling Given: Not Answered Alcohol Use Standard Drinks/Week Comments No 0 (1 standard drink = 0.6 oz pur e alcohol) Comments No Sex and Gender Information Value Date Recorded Sex Assigned at Not on file Legal Sex Female 6:27 PM EDT Gender Identity Not on file Sexual Orientation Not on file Last Filed Vital Signs Vital Sign Reading Time Taken Comments Blood Pressure 123/79 10/28/2024 8:12 AM EDT Pulse 73 10/28/2024 8:12 AM EDT Temperature 36.9 C (98.4 F) 10/28/2024 8:12 AM EDT Respiratory Rate - - Oxygen Saturation 97% 10/28/2024 8:12 AM EDT Inhaled Oxygen Concentration - - Weight 91.6 kg (202 lb) 10/28/2024 8:12 AM EDT Height 175.3 cm (5' 9 ) 10/28/2024 8:12 AM EDT Body Mass Index 29.83 10/28/2024 8:12 AM EDT Plan of Treatment Health Maintenance Due Date Last Done Comments [facility]-Depression Screening 1982 [facility]-HIV Screening 1982 [facility]-Hepatitis C Screening 1982 [facility]-/Child/Adol SDOH Screenings 1982 [facility]-Varicella Vaccines (1 of 2 - 13+ 2-dose series) 1995 [facility]- SDOH Screenings 2000 [facility]-Adult SDOH Screenings 2000 [facility]-Hepatitis B Vaccines (1 of 3 - 19+ 3-dose series) 2001 [facility]-Pap Smear 2003 HPV Vaccines (1 - 3-dose SCDM series) 2009 [facility]-Cervical Cancer Screening 2012 [facility]-HPV/Cotest 2012 EDS-[id number] Vaccine ( - season) 2024 03/03/2021, 06/03/2020, 05/03/2020 [facility]-Influenza Vaccine (#1) 12/28/202402/20, 02/22/2022, 02/15/2021, Additional history exists [facility]-DTaP,Tdap,and Td Vaccines (2 - Td or Tdap) 09/10/2029 09/11/2019 [facility]-Zoster Vaccines (1 of 2) 2032 [facility]-Hepatitis A Vaccines Aged Out 09/04/2018, 10/2017 No longer eligible based on patient's age to complete this topic [facility]-Obesity Intervention Completed 10/28/2024 [facility]-HIB Vaccines Aged Out No longer e ligible based on patient's age to complete this topic [facility]-IPV Vaccines Aged Out No longer e ligible based on patient's age to complete this topic [facility]-Pneumococcal Vaccine: Pediatrics (0 to 5 Years) and At-Risk Patients (6 to 49 Years) Aged Out No longer eligible based on patient's age to complete this topic [facility]-Rotavirus Vaccines Aged Out No lo nger eligible based on patient's age to complete this topic [place] [id number] Care Teams Lamps Tester And Inspector Relationship Specialty Start Date End Date Hawk Mcguire MD [address] [place] [id number] PCP - General 09/09/20
[2025-04-08 08:21] LABS: Hematocrit 39.8 % (37.0-47.0); Hemoglobin 12.8 g/dL (12.2-16.2); Immature Granulocytes % 0.2 %; Mean Corpuscular HGB Conc 32.2 g/dL (31.8-35.4); Mean Corpuscular Hemoglobin 30.6 pg (27.0-31.2); Mean Corpuscular Volume 95.2 fl (81-99); Nucleated Red Blood Cells % 0 %; Platelet Count 289 K/mm3 (142-424); Red Blood Count 4.18 M/mm3 (4.20-5.40); Red Cell Distribution Width-SD 42.6 fL; White Blood Count 6.5 K/mm3 (4.8-10.8)
[2025-04-08 08:58] LABS: Albumin Level 4.2 g/dl (3.5-5.0)
[2025-04-08 08:59] LABS: Chloride 104 mmol/L (98-107); Potassium 4.2 mmoL/L (3.5-5.1); Sodium 140 mmol/L (136-145)
[2025-04-08 09:01] LABS: Alanine Aminotransferase 20 U/L (12-78); Anion Gap 13.2 mEq/L (5-15); Aspartate Amino Transferase 28 U/L (14-36); Bilirubin,Unconjugated 0.5 mg/dL (0.0-1.1); Blood Urea Nitrogen 12 mg/dl (7-17); Carbon Dioxide 27 mmol/L (22.0-30.0); Creatinine,Serum 0.80 mg/dl (0.52-1.04); Estimated Glomerular Filt Rate 78 ml/min (>60); GFR (African American) 95 ML/MIN (>60)
[2025-04-08 09:02] LABS: Albumin/Globulin Ratio 1.7 (1.1-1.8); Alkaline Phosphatase 77 U/L (38-126); Bilirubin,Direct 0.0 mg/dl (0.0-0.4); Bilirubin,Indirect 0.5 mg/dL (0.0-0.9); Bilirubin,Total 0.5 mg/dl (0.2-1.3); Calcium 9.2 mg/dl (8.4-10.2); Cholesterol 168 mg/dl (140-200); Globulin 2.5 g/dL (1.3-3.2); Glucose 79 mg/dl (74-100); HDL Cholesterol 72 mg/dl (40-60); Total Protein,Serum 6.7 g/dl (6.3-8.2); Triglycerides 77 mg/dl (30-150)
[2025-04-08 09:12] LABS: Hemoglobin A1C 4.8 % (4.0-6.0)
[2025-04-08 09:19] LABS: Free T4 (Free Thyroxine) 0.85 ng/dl (0.78-2.19)
[2025-04-08 09:36] LABS: Thyroid Stimulating Hormone 1.42 uIU/mL (0.465-4.68)
[2025-04-15 08:14] LABS: 1,25 Dihydroxy Vitamin D 63 pg/mL (.); 1,25-Dihydroxy, Vitamin D-2 <10 pg/mL (.); 1,25-Dihydroxy, Vitamin D-3 62 pg/mL (.)
== END 2025-04-08 23:59 | disposition home or self-care (01) ==
LOC: LAB 07:56
PROVIDERS: PCP Internal Medicine Adolescent Medicine; Visit Provider Nurse Practitioner Family
DX: R06.00 Dyspnea, unspecified (principal); R73.9 Hyperglycemia, unspecified
CPT/HCPCS: 36415; 80053; 80061; 82248; 82652; 83036; 84439; 84443; 85025

== ENCOUNTER 2025-04-09 14:11 | Outpatient (CLI) | payer OTHER, SELFPAY ==
--- NOTE | 2025-04-09 14:14 | MR_ITS ---
FINAL REPORT CLINICAL HISTORY: ACUTE PAIN IN R KNEE 03/05 climbed up on a chair and felt a shooting pain, feels like knee has been hyper extending since. COMPARISON: None FINDINGS: Multi planar MR imaging was performed of the right knee. The anterior and posterior cruciate ligaments are intact. The quadriceps and patellar tendons are intact. The medial and lateral menisci are intact without evidence of tear. The medial and lateral collateral ligaments appear intact. The medial and lateral retinacula appear intact. There is no evidence of bone marrow edema or osteochondral defect. There is a minimal joint effusion. IMPRESSION: No evidence of significant internal derangement. Minimal joint effusion. Reviewed, Interpreted and Dictated by Carl Griffin MD Transcribed by Melyssa Jay Authenticated and [facility]
== END 2025-04-09 23:59 | disposition home or self-care (01) ==
LOC: RAD 14:11
PROVIDERS: PCP Internal Medicine Adolescent Medicine; Visit Provider Nurse Practitioner Family
DX: M25.561 Pain in right knee (principal)
CPT/HCPCS: 73721